=== PATIENT | female | born 1980 | race Caucasian/White ===

== ENCOUNTER 2023-05-18 13:43 | Observation (INO) | payer OTHER ==
[2023-05-18 13:53] VITALS: RESP 18; TEMP 98.2
--- NOTE | 2023-05-18 14:03 | ED ---
General Adult HPI - General Chief complaint: Alcohol Stated complaint: ETOH Withdrawal Time Seen by Provider: 05/18/23 13:50 Source: patient, RN notes reviewed, old records reviewed Limitations: no limitations - History of Present Illness Initial comments: This is a 42-year-old female who presents to the emergency department stating that she was in the hospital last night for alcohol alcohol rehab and they sent her out last night and she went to [facility] and they did an alcohol level and told her that she needed to be cleared first from the hospital. Patient states she does have a history of having seizures when she is coming off alcohol but she does not have a seizure disorder. Patient denies any complaints at this time. Patient denies any seizures or aura at this time. Patient denies any fever chills. Patient has any chest pain palpitations difficulty breathing or shortness of breath. Patient has any abdominal pain. Patient states she just wants to be cleared from us so she can go back to [place] - Related Data Allergies Allergy/AdvReac Type Severity Reaction Status Date / Time No Known Allergies Allergy Verified 05/18/23 13:52 Review of Systems ROS Statement: Those systems with pertinent positive or pertinent negative responses have been documented in the HPI. ROS Other: All systems not noted in ROS Statement are negative. Past Medical History History of Any Multi-Drug Resistant Organisms: None Reported Past Psychological History: No Psychological Hx Reported Smoking Status: Current every day smoker Past Alcohol Use History: Abuse Past Drug Use History: Cocaine General Exam - General Exam Comments Initial Comments: GENERAL: Patient is well-developed and well-nourished. Patient is nontoxic and well- hydrated and is in no acute distress. ENT: Neck is soft and supple. No significant lymphadenopathy is noted. Oropharynx is clear. Moist mucous membranes. Neck has full range of motion without eliciting any pain. EYES: The sclera were anicteric and conjunctiva were pink and moist. Extraocular movements were intact and pupils were equal round and reactive to light. Eyelids were unremarkable. PULMONARY: Unlabored respirations. Good breath sounds bilaterally. No audible rales rhonchi or wheezing was noted. CARDIOVASCULAR: There is a regular rate and rhythm without any murmurs gallops or rubs. ABDOMEN: Soft and nontender with normal bowel sounds. SKIN: Skin is clear with no lesions or rashes and otherwise unremarkable. NEUROLOGIC: Patient is alert and oriented x3. Cranial nerves II through XII are grossly intact. Motor and sensory are also intact. Normal speech, volume and content. Symmetrical smile. MUSCULOSKELETAL: Normal extremities with adequate strength and full range of motion. LYMPHATICS: No significant lymphadenopathy is noted PSYCHIATRIC: Normal psychiatric evaluation. Limitations: no limitations Course Vital Signs 05/18/23 05/18/23 13:46 15:13 Temperature 98.2 F Pulse Rate 86 89 Respiratory 18 18 Rate Blood Pressure 136/84 119/89 O2 Sat by Pulse 96 95 Oximetry Medical Decision Making - Medical Decision Making Was pt. sent in by a medical professional or institution (, OLYA, SPRING PRODUCTION SUPERVISOR, urgent care, hospital, or long-term...) When possible be specific @ -Patient was sent to us by [facility] Did you speak to anyone other than the patient for history (EMS, parent, family, police, friend...)? What history was obtained from this source @ -No Did you review nursing and triage notes (agree or disagree)? Why? @ -I reviewed and agree with nursing and triage notes Were old charts reviewed (outside hosp., previous admission, EMS record, old EKG, old radiological studies, urgent care reports/EKG's, long-term records)? Report findings @ -No old charts were reviewed Differential Diagnosis (chest pain, altered mental status, abdominal pain women, abdominal pain men, vaginal bleeding, weakness, fever, dyspnea, syncope, headache, dizziness, GI bleed, back pain, seizure, CVA, palpatations, mental health, musculoskeletal)? @ -Not applicable EKG interpreted by me (3pts min.). @ -As above X-rays interpreted by me (1pt min.). @ -None done CT interpreted by me (1pt min.). @ -None done U/S interpreted by me (1pt. min.). @ -None done What testing was considered but not performed or refused? (CT, X-rays, U/S, labs)? Why? @ -None What meds were considered but not given or refused? Why? @ -None Did you discuss the management of the patient with other professionals (professionals i.e. OLYA Burton, SPRING PRODUCTION SUPERVISOR, lab, RT, psych nurse, social media senior associate, barber tool sharpener, teacher, unclaimed property officer, telephonic case manager)? Give summary @ -I spoke with [facility] and they agreed to admit the patient Was smoking cessation discussed for >3mins.? @ -No Was critical care preformed (if so, how long)? @ -No Were there social determinants of health that impacted care today? How? (Homelessness, low income, unemployed, alcoholism, drug addiction, transportation, low edu. Level, literacy, decrease access to med. care, senior care, rehab)? @ -No Was there de-escalation of care discussed even if they declined (Discuss DNR or withdrawal of care, Hospice)? DNR status @ -No What co-morbidities impacted this encounter? (DM, HTN, Smoking, COPD, CAD, Cancer, CVA, ARF, Chemo, Hep., AIDS, mental health diagnosis, sleep apnea, morbid obesity)? @ -None Was patient admitted / discharged? Hospital course, mention meds given and route, prescriptions, significant lab abnormalities, going to OR and other pe rtinent info. @ -Lab work came back normal as patient except for an alcohol of 205. Patient stated she does not want to be she wants to go back to the rehabilitation center. Patient initially denied having any aura about a seizure but she did tell one of the nurses that earlier she thought she might have a seizure. Patient alcohol is 205. Patient has no complaints at this time and is asking to be discharged. Patient's alcohol was elevated so she could not be discharged [place] refused to take the patient back so the patient will be admitted to [facility] Undiagnosed new problem with uncertain prognosis? @ -No Drug Therapy requiring intensive monitoring for toxicity (Heparin, Nitro, Insulin, Cardizem)? @ -No Were any procedures done? @ -No Diagnosis/symptom? @ -Alcohol intoxication Acute, or Chronic, or Acute on Chronic? @ -Acute Uncomplicated (without systemic symptoms) or Complicated (systemic symptoms)? @ -Complicated Side effects of treatment? @ -No Exacerbation, Progression, or Severe Exacerbation? @ -No Poses a threat to life or bodily function? How? (Chest pain, USA, MS, pneumonia, PE, COPD, DKA, ARF, appy, cholecystitis, CVA, Diverticulitis, Homicidal, Suicid al, threat to staff... and all critical care pts) @ -No - Lab Data Result diagrams: 05/18/23 14:05 05/18/23 14:05 Lab Results 05/18/23 05/18/23 Range/Units 14:05 14:05 WBC 8.3 (3.8-10.6) k/uL RBC 4.81 (3.80-5.40) m/uL Hgb 15.6 (11.4-16.0) gm/dL Hct 47.7 H (34.0-46.0) % MCV 99.2 (80.0-100.0) fL MCH 32.4 (25.0-35.0) pg MCHC 32.6 (31.0-37.0) g/dL RDW 13.9 (11.5-15.5) % Plt Count 309 (150-450) k/uL MPV 7.6 Neutrophils % 53 % Lymphocytes % 40 % Monocytes % 4 % Eosinophils % 1 % Basophils % 1 % Neutrophils # 4.5 (1.3-7.7) k/uL Lymphocytes # 3.3 (1.0-4.8) k/uL Monocytes # 0.3 (0-1.0) k/uL Eosinophils # 0.1 (0-0.7) k/uL Basophils # 0.1 (0-0.2) k/uL Sodium 143 (137-145) mmol/L Potassium 3.8 (3.5-5.1) mmol/L Chloride 105 (98-107) mmol/L Carbon Dioxide 28 (22-30) mmol/L Anion Gap 10 mmol/L BUN 10 (7-17) mg/dL Creatinine 0.50 L (0.52-1.04) mg/dL Est GFR (CKD-EPI)AfAm >90 (>60 ml/min/1.73 sqM) Est GFR (CKD-EPI)NonAf >90 (>60 ml/min/1.73 sqM) Glucose 83 (74-99) mg/dL Calcium 9.2 (8.4-10.2) mg/dL Magnesium 1.9 (1.6-2.3) mg/dL Total Bilirubin 0.7 (0.2-1.3) mg/dL AST 29 (14-36) U/L ALT 13 (4-34) U/L Alkaline Phosphatase 99 (38-126) U/L Total Protein 6.9 (6.3-8.2) g/dL Albumin 3.9 (3.5-5.0) g/dL Serum Alcohol 203 H* mg/dL Disposition Clinical Impression: Alcohol intoxication Disposition: ADMITTED IP TO THIS HOSP Referrals: None,Stated [Primary Care Provider] - 1-2 days Time of Disposition: 15:36
[2023-05-18 14:20] LABS: Basophils # (A) 0.1 k/uL (0-0.2); Basophils % (A) 1 %; Eosinophils # (A) 0.1 k/uL (0-0.7); Eosinophils % (A) 1 %; HCT 47.7 % (34.0-46.0); HGB 15.6 gm/dL (11.4-16.0); Lymphocytes # (A) 3.3 k/uL (1.0-4.8); Lymphocytes % (A) 40 %; MCH 32.4 pg (25.0-35.0); MCHC 32.6 g/dL (31.0-37.0); MCV 99.2 fL (80.0-100.0); Mean Platelet Volume 7.6; Monocytes # (A) 0.3 k/uL (0-1.0); Monocytes % (A) 4 %; Neutrophils # (A) 4.5 k/uL (1.3-7.7); Neutrophils % (A) 53 %; Platelet Count 309 k/uL (150-450); RBC 4.81 m/uL (3.80-5.40); RDW 13.9 % (11.5-15.5); WBC 8.3 k/uL (3.8-10.6)
[2023-05-18] MEDS: SODIUM CHLORIDE 0.9% 500 ML 500 ML IV ONE (14:21)
[2023-05-18] MEDS: SODIUM CHLORIDE 0.9% 1,000 ML IV ONE ×2 (14:22→16:29)
[2023-05-18 14:40] LABS: ALT 13 U/L (4-34); AST 29 U/L (14-36); African American GFR (CKD) >90 (>60 ml/min/1.73 sqM); Albumin 3.9 g/dL (3.5-5.0); Alkaline Phosphatase 99 U/L (38-126); Anion Gap 10 mmol/L; Blood Urea Nitrogen 10 mg/dL (7-17); Calcium 9.2 mg/dL (8.4-10.2); Carbon Dioxide 28 mmol/L (22-30); Chloride 105 mmol/L (98-107); Glucose 83 mg/dL (74-99); Magnesium 1.9 mg/dL (1.6-2.3); Non-African American GFR(CKD) >90 (>60 ml/min/1.73 sqM); Potassium 3.8 mmol/L (3.5-5.1); Sodium 143 mmol/L (137-145); Total Bilirubin 0.7 mg/dL (0.2-1.3); Total Protein 6.9 g/dL (6.3-8.2)
[2023-05-18 15:02] LABS: Alcohol 203 mg/dL
[2023-05-18] MEDS: LORazepam 2 MG/ML INJ IM STA (16:11)
[2023-05-18] MEDS ORDERED: LORazepam 0.5 MG TAB PO PRN (16:18)
[2023-05-18] MEDS ORDERED: LORazepam 1 MG TAB PO PRN (16:18)
[2023-05-18] MEDS ORDERED: LORazepam 2 MG/ML INJ IV PRN ×3 (16:18)
[2023-05-18 16:27] VITALS: BP 119/89; PULSE 89
[2023-05-18] MEDS: THIAMINE 100 MG/ML 2 ML VIAL IM STA (16:29)
[2023-05-18] MEDS: NICOTINE 21MG/24HR PATCH TRANSDERM STA (16:31)
--- NOTE | 2023-05-18 16:42 | P.HPIM ---
History of Present Illness H&P Date: 05/18/23 History of Presenting Illness: Patient is a 42-year-old female with a past medical history of alcohol abuse with history of alcohol withdrawal seizures, cocaine abuse, and nicotine dependence. She presented to the emergency department from [facility] to alcohol intoxication and need for medical clearance. Patient underwent evaluation in the emergency department. Vital signs upon arrival showing blood pressure 136/84, heart rate 86, respiratory rate 18, temp 98.2 F, and SpO2 of 96% on room air. Labs completed upon arrival show CBC unremarkable, BMP normal findings with sodium of 143, potassium 3.8 and renal function showing BUN of 10 and creatinine of 0.50 with GFR greater than 90. Magnesium normal findings at 1.9. Liver profile unremarkable. Blood alcohol level was 203. Patient admitted under our services. Patient seen and fully evaluated at bedside. Patient yelling and angry in the emergency department, patient expressing that she does not want to be admitted to the hospital and demanding discharge at this time. Patient currently belligerent and using foul language and adamantly refusing to stay in the hospital. She states that there is nothing wrong with her and denies any pain or complaints.States that she only came here for clearance and did what she was told and is not going to stay. Discussed with the ED physician regarding holding patient in the emergency department until clinically sober and discharging and ED physician declined. Discussed with patient and nursing staff at bedside, patient being admitted under our services and per patient's request she will be discharged if/when she is able to get a ride and someone to assume care for her and/or once clinically sober. Review of systems: Pertinent positives and negatives as discussed in HPI, a complete review of systems was performed and all other systems are negative. Physical exam: Vital signs reviewed and stable. General: Nontoxic, no distress and appears stated age. Derm: Skin warm and dry, normal coloration for ethnicity. Head: Atraumatic, normocephalic and symmetric. Eyes: EOMs intact, no lid lag, and anicteric sclera Mouth: no lip lesions, mucus membranes moist Cardiovascular: regular rate and rhythm with normal S1S2, no murmur, positive posterior tibial pulses bilaterally, and cap refill < 2 seconds. Lungs: Respirations even, regular, and unlabored on room air. Lungs CTA bilaterally, no rhonchi, no rales, no wheezing, and no accessory muscle usage. Abdominal: soft, nontender to palpation Ext: ROM intact. No gross muscle atrophy, no edema, no contractures Neuro: Speech clear, face symmetrical and CN II-XII grossly intact with no noted focal neuro deficits. Psych: Alert and oriented to person, place, time, and situation. Angry and yelling. Assessment and Plan of Care: Alcohol intoxication in active alcoholic History of alcohol withdrawal seizures History of cocaine abuse Nicotine dependence -Order placed for monitoring of CIWA scores and patient to be medicated with Ativan 0.5 mg every 4 hours as needed for CIWA score of 4-5, Ativan 1 mg every 4 hours for CIWA score of 6-7, Ativan 2 mg every 3 hours CIWA score of 8-9, and Ativan 2 mg every 2 hours forr CIWA score of 10 or greater. -Continuous IV hydration with 0.9% normal saline at 150 cc/h. -Thiamine 100 mg daily -Seizure, fall, and elopement precautions in place. -Order placed for serum hCG -Continued close monitoring of electrolytes and replace as needed. -Telemetry monitoring. -Order placed for nicotine patch 21 mg, recommend smoking cessation. -Recommend patient returning to [place] for drug and alcohol rehabilitation and cessation of any and all alcohol and cocaine use. Data and imaging reviewed: As stated above in HPI The patient is admitted with an anticipated less than 2 midnight stay for evaluation of alcohol intoxication CODE STATUS: Full code DVT prophylaxis: Lovenox Anticipated discharge date: Clinical course to determine Anticipated discharge place: Clinical course to determine Patient was seen independently by Nurse Practitioner. This document was prepared using [employer] dictation software. Please allow for errors in supervisor color making while rare they do occur. Nadeem Magana NP rendered care for this patient independently, reviewed the findings and plan as documented in the note above. I did not physically speak with or examine the patient on this date. Past Medical History History of Any Multi-Drug Resistant Organisms: None Reported Past Psychological History: No Psychological Hx Reported Smoking Status: Current every day smoker Past Alcohol Use History: Abuse Past Drug Use History: Cocaine Medications and Allergies Home Medications Medication Instructions Recorded Confirmed Type Cephalexin [Keflex] 500 mg PO DIRECTED 05/18/23 05/18/23 History Allergies Allergy/AdvReac Type Severity Reaction Status Date / Time No Known Allergies Allergy Verified 05/18/23 17:12 Physical Exam Osteopathic Statement: *. No significant issues noted on an osteopathic structural exam other than those noted in the History and Physical/Consult. Vitals: Vital Signs Temp Pulse Resp BP Pulse Ox 05/18/23 15:13 89 18 119/89 95 05/18/23 13:46 98.2 F 86 18 136/84 96 Intake and Output 05/18/23 05/18/23 05/18/23 06:59 14:59 22:59 Other: Weight 63.503 kg Results CBC & Chem 7: 05/18/23 14:05 05/18/23 14:05 Labs: Abnormal Lab Results - Last 24 Hours (Table) 05/18/23 05/18/23 Range/Units 14:05 14:05 Hct 47.7 H (34.0-46.0) % Creatinine 0.50 L (0.52-1.04) mg/dL Serum Alcohol 203 H* mg/dL
[2023-05-18] MEDS: ZIPRASIDONE 20 MG VIAL IM STA (18:34)
--- NOTE | 2023-05-18 19:03 | P.DS ---
Providers Date of admission: 05/18/23 16:18 Expected date of discharge: 05/18/23 Attending physician: Coty Modi DO Primary care physician: Stated None Hospital Course: Discharge Diagnosis: Alcohol intoxication in active alcoholic. Patient clinically sober at this time and cleared for discharge home. Patient does not have a vehicle here and was informed she is not able to drive self. History of alcohol withdrawal seizures History of cocaine abuse Nicotine dependence Hospital Course: Patient is a 42-year-old female with a past medical history of alcohol abuse with history of alcohol withdrawal seizures, cocaine abuse, and nicotine dependence. She presented to the emergency department from [place] secondary to alcohol intoxication and need for medical clearance. Patient underwent evaluation in the emergency department. Vital signs upon arrival showing blood pressure 136/84, heart rate 86, respiratory rate 18, temp 98.2 F, and SpO2 of 96% on room air. Labs completed upon arrival show CBC unremarkable, BMP normal findings with sodium of 143, potassium 3.8 and renal function showing BUN of 10 and creatinine of 0.50 with GFR greater than 90. Magnesium normal findings at 1.9. Liver profile unremarkable. Blood alcohol level was 203. Patient admitted under our services. Patient seen and fully evaluated at bedside. Patient yelling and angry in the emergency department, patient expressing that she does not want to be admitted to the hospital and demanding discharge at this time. Patient currently belligerent and using foul language and adamantly refusing to stay in the hospital. She states that there is nothing wrong with her and denies any pain or complaints.States that she only came here for clearance and did what she was told and is not going to stay. Discussed with the ED physician regarding holding patient in the emergency department until clinically sober and discharging and ED physician declined. Discussed with patient and nursing staff at bedside, patient being admitted under our services and per patient's request she will be discharged if/when she is able to get a ride and someone to assume care for her and/or once clinically sober. Patient admitted to our services until clinically sober and is being discharged per her request now that she received aggressive IV fluid hydration and is clinically sober for discharge. A total of 28 minutes of time were spent preparing this complex discharge summary. Pt was discharged on at 6:58 PM. Patient was seen independently by Nurse Practitioner. This document was prepared using [employer] dictation software. Please allow for errors in meat sales and storage manager while rare they do occur. Nadeem Magana NP rendered care for this patient independently, reviewed the findings and plan as documented in the note above. I did not physically speak with or examine the patient on this date. Patient Condition at Discharge: Stable Plan - Discharge Summary New Discharge Prescriptions: Continue Cephalexin [Keflex] 500 mg PO DIRECTED Discharge Medication List Cephalexin [Keflex] 500 mg PO DIRECTED 05/18/23 [History] Follow up Appointment(s)/Referral(s): None,Stated [Primary Care Provider] - 1-2 days Patient Instructions/Handouts: Abuse of Alcohol (DC), Alcohol Withdrawal (DC), Medical Clearance for Substance Abuse Treatment (DC) Activity/Diet/Wound Care/Special Instructions: Activity: As tolerated. Take breaks as needed. Diet: Heart healthy and carb consistent diet. Avoid salts, or foods with hidden salts such as canned or boxed foods and frozen dinners. Extra salt makes your heart work harder and traps the fluid in your body for longer. Special Instructions: Strongly recommend cessation of any and all alcohol use. Strongly recommend cessation of any further cocaine use. Thank you for allowing us to participate in your care, it was truly a pleasure having you for our patient!!! Discharge Disposition: HOME SELF-CARE
[2023-05-19] MEDS ORDERED: THIAMINE 100 MG TAB PO SCH (09:00)
[2023-05-19] MEDS ORDERED: ENOXAPARIN 40 MG/0.4 ML SYRINGE SQ SCH (09:00)
== END 2023-05-18 19:23 | disposition home or self-care (01) ==
LOC: EC 13:43 → 6NMEDSUR 16:18
PROVIDERS: ADMIT Internal Medicine; ATTEND Internal Medicine
DX: F10.239 Alcohol dependence with withdrawal, unspecified (principal); Y90.7 Blood alcohol level of 200-239 mg/100 ml; F17.210 Nicotine dependence, cigarettes, uncomplicated; F10.229 Alcohol dependence with intoxication, unspecified
CPT/HCPCS: 96360; 96361; 99285; 36415; 80053; 83735; 85025; 84703; G0378; G0480; S4990; J2060; 80320